=== PATIENT | male | born 1950 | race Caucasian/White ===

== ENCOUNTER → 2016-11-08 | Outpatient (REF) | payer MEDICARE ==
[~2016-11-08] MED LIST: COLC1TAB13 PO; LOSA100T PO; MELO15TA4 PO; OMEP20CA3 PO; PRAV40TA2 PO
[2016-11-10 00:06] LABS: PLASMA COBALT 1.8 ug/L (0.0-0.9)
== END ==
LOC: M LAB REF 12:15
PROVIDERS: ATTEND Family Medicine
DX: Z96.649 Presence of unspecified artificial hip joint (principal); Z79.899 Other long term (current) drug therapy

== ENCOUNTER → 2017-09-02 | Outpatient (CLI) | payer MEDICARE | LOC: M WUC 18:56 | DX: R05 Cough (principal) | CPT/HCPCS: 71046 ==

== ENCOUNTER 2017-10-09 08:02 | Day surgery (SDC) | payer MEDICARE ==
[2017-10-09] MEDS: NS 1,000 ML IV (08:00)
[2017-10-09] MEDS ORDERED: fentaNYL 100 MCG/2 ML INJECTION (J3010) As Ordered (09:17)
[2017-10-09] MEDS ORDERED: LIDOCAINE 2% INJ 100 MG/5 ML SDV (FOR ANES.) As Ordered (09:48)
[2017-10-09] MEDS ORDERED: PROPOFOL 200 MG/20 ML VIAL As Ordered ×2 (09:48)
== END 2017-10-09 10:31 | disposition home or self-care (01) ==
LOC: M OPP 08:02
DX: Z12.11 Encounter for screening for malignant neoplasm of colon (principal); K62.1 Rectal polyp; K64.0 First degree hemorrhoids; R12 Heartburn; I10 Essential (primary) hypertension; E78.5 Hyperlipidemia, unspecified; M10.9 Gout, unspecified; K21.9 Gastro-esophageal reflux disease without esophagitis; M19.90 Unspecified osteoarthritis, unspecified site; R06.83 Snoring; Z79.899 Other long term (current) drug therapy; Z80.42 Family history of malignant neoplasm of prostate; Z96.643 Presence of artificial hip joint, bilateral
CPT/HCPCS: 45380

== ENCOUNTER → 2018-03-18 | Outpatient (REF) | payer MEDICARE ==
[2018-03-19 09:39] LABS: HEPATITIS C VIRUS ABY INDEX 0.1 INDEX (<0.8)
== END ==
LOC: M LAB REF 12:13
DX: Z01.89 Encounter for other specified special examinations (principal)
CPT/HCPCS: 86803

== ENCOUNTER → 2019-07-05 | Outpatient (CLI) | payer MEDICARE ==
[~2019-07-05] MED LIST changes: +AMLO5TAB6 PO; +ATOR40TA75; -LOSA100T PO; +LOSA100T8 PO; +MELO15TA28 PO; -MELO15TA4 PO; -OMEP20CA3 PO; +OMEP20CA4 PO; +VALS160T PO
[2019-07-05 13:14] LABS: ALBUMIN 3.9 GM/DL (3.2-5.2); BLOOD UREA NITROGEN 15 MG/DL (7-18); CALCIUM LEVEL 9.1 MG/DL (8.8-10.2); CARBON DIOXIDE LEVEL 32 MEQ/L (21-32); CHLORIDE LEVEL 107 MEQ/L (98-107); CREATININE FOR GFR 0.96 MG/DL (0.70-1.30); GLOMERULAR FILTRATION RATE > 60.0 (>49); GLUCOSE, FASTING 113 MG/DL (70-100); PHOSPHORUS LEVEL 2.9 MG/DL (2.5-4.9); POTASSIUM SERUM 4.7 MEQ/L (3.5-5.1); SODIUM LEVEL 143 MEQ/L (136-145); URIC ACID 6.9 MG/DL (3.5-7.2)
== END ==
LOC: M WUC 09:26
PROVIDERS: ATTEND Physician Assistant
DX: M10.072 Idiopathic gout, left ankle and foot (principal)

== ENCOUNTER → 2019-09-09 | Outpatient (REF) | payer MEDICARE ==
[~2019-09-09] MED LIST changes: +OMEP1CAP73 PO; -OMEP20CA4 PO; -VALS160T PO; +VALS160T2 PO
== END ==
LOC: M LAB REF 12:25
PROVIDERS: ATTEND Family Medicine
DX: M10.9 Gout, unspecified (principal)

== ENCOUNTER → 2020-06-21 | Outpatient (REF) | payer MEDICARE ==
[~2020-06-21] MED LIST changes: +AMLO1TAB24 PO; -AMLO5TAB6 PO
== END ==
LOC: M LAB REF 12:16
PROVIDERS: ATTEND Family Medicine
DX: M10.9 Gout, unspecified (principal)

== ENCOUNTER → 2022-05-28 | Outpatient (REF) | payer MEDICARE ==
[~2022-05-28] MED LIST changes: +COLC0.6T47 PO; -COLC1TAB13 PO
== END ==
LOC: M LAB REF 12:29
PROVIDERS: ATTEND Family Medicine
DX: M10.9 Gout, unspecified (principal)

== ENCOUNTER → 2022-11-28 | Outpatient (REF) | payer MEDICARE | LOC: M LAB REF 16:29 | PROVIDERS: ATTEND Family Medicine | DX: M10.9 Gout, unspecified (principal) ==

== ENCOUNTER 2023-11-01 08:55 | Observation (INO) | payer MEDICARE ==
[~2023-11-01] VITALS: Ht 167.6 cm; Wt 87.6 kg
[~2023-11-01 08:55] MED LIST changes: -ALLO100T PO; -AMLO1TAB25 PO; -AMOX875T2 PO; -ATOR80TA59 PO; -AZIT500T5 PO; -DOXY100C3 PO; -DOXY100T; -EZET10TA21 PO; -MUCI600T31 PO
[2023-11-01] MEDS ORDERED: DOXY100T (09:20)
[2023-11-01] MEDS ORDERED: EZET10TA21 PO (09:20)
[2023-11-01] MEDS ORDERED: ALLO100T PO (09:20)
[2023-11-01 11:29] LABS: BASO # 0.1 10^3/uL (0.0-0.2); BASO % 0.9 % (0.0-1.0); EOS % 0.3 % (0.0-3.0); HEMATOCRIT 43.6 % (42.0-52.0); HEMOGLOBIN 14.8 g/dl (13.5-17.5); LYMPH # 2.4 10^3/uL (1.5-5.0); LYMPH % 18.3 % (24.0-44.0); MEAN CORPUSCULAR HGB CONC 33.9 g/dl (32.0-36.5); MEAN CORPUSCULAR VOLUME 88.4 fl (80.0-96.0); MONO # 1.6 10^3/uL (0.0-0.8); NEUTROPHILS # 8.3 10^3/uL (1.5-8.5); NEUTROPHILS % 62.8 % (36.0-66.0); PLATELET COUNT, AUTOMATED 243 10^3/uL (150-450); RED BLOOD COUNT 4.93 10^6/uL (4.30-6.10); WHITE BLOOD COUNT 13.2 10^3/uL (4.0-10.0)
[2023-11-01 12:04] LABS: CPK CREATINE PHOSPHOKINASE 76 U/L (46-171)
[2023-11-01 12:05] LABS: ALBUMIN 3.1 G/DL (3.2-5.2); ALKALINE PHOSPHATASE 68 U/L (46-116); ALT/SGPT 44 U/L (7.0-40); AST/SGOT 24 U/L (<34); BILIRUBIN,DIRECT 0.3 MG/DL (<0.4); BILIRUBIN,TOTAL 0.9 MG/DL (0.3-1.2); BLOOD UREA NITROGEN 12 MG/DL (9-23); CALCIUM LEVEL 9.2 MG/DL (8.3-10.6); CARBON DIOXIDE LEVEL 26 MMOL/L (20-31); CHLORIDE LEVEL 103 MMOL/L (98-107); CK-MB VALUE MASS < 1.0 NG/ML (<3.6); CREATININE FOR GFR 0.83 MG/DL (0.70-1.30); GLOMERULAR FILTRATION RATE > 60.0 (>42); GLUCOSE, FASTING 96 MG/DL (74-106); MB/CK RELATIVE INDEX 1.31 (< OR =4); POTASSIUM SERUM 3.9 MMOL/L (3.5-5.1); SODIUM LEVEL 136 MMOL/L (136-145); TOTAL PROTEIN 6.6 G/DL (5.7-8.2)
[2023-11-01] MEDS ORDERED: ISOVUE-370 76% 100ML VIAL As Ordered ONE (12:56)
[2023-11-01] MEDS: cefTRIAXone SOD 1 GM in D5W MINI-BAG PLUS 50 ML IV ONE (14:20)
[2023-11-01] MEDS: AZITHROMYCIN INJ 500 MG, VIAL MATE ADAPTER 1 EACH in NS 250 ML IV ONE (15:05)
[2023-11-01] MEDS ORDERED: ATOR80TA59 PO (15:10)
[2023-11-01] MEDS ORDERED: DOXY100C3 PO (15:10)
[2023-11-01] MEDS ORDERED: AMLO1TAB25 PO (15:10)
[2023-11-01] MEDS ORDERED: HOME MED LIST COMPLETE! XX SCH (15:15)
[2023-11-01] MEDS ORDERED: OMEPRAZOLE 20MG CAP PO PRN (15:40)
[2023-11-01] MEDS: NS 1,000 ML IV ONE (17:12)
[2023-11-01 17:31] VITALS: BP 129/79; TEMP 98.8
[2023-11-01 17:50] VITALS: O2SAT 93
[2023-11-01] MEDS: ENOXAPARIN 40MG/0.4ML SYRINGE (J1650 PER 10MG) SC SCH (20:15)
[2023-11-01 22:00] VITALS: BP 133/61; TEMP 99.3; O2SAT 93
[2023-11-02 05:20] VITALS: BP 134/61; TEMP 97.9; O2SAT 93
[2023-11-02 06:27] LABS: HEMATOCRIT 40.1 % (42.0-52.0); HEMOGLOBIN 13.5 g/dl (13.5-17.5); MEAN CORPUSCULAR HEMOGLOBIN 29.8 pg (27.0-33.0); MEAN CORPUSCULAR HGB CONC 33.7 g/dl (32.0-36.5); MEAN CORPUSCULAR VOLUME 88.5 fl (80.0-96.0); PLATELET COUNT, AUTOMATED 240 10^3/uL (150-450); RED BLOOD COUNT 4.53 10^6/uL (4.30-6.10); WHITE BLOOD COUNT 11.9 10^3/uL (4.0-10.0)
[2023-11-02 06:37] LABS: BLOOD UREA NITROGEN 10 MG/DL (9-23); CALCIUM LEVEL 8.7 MG/DL (8.3-10.6); CARBON DIOXIDE LEVEL 26 MMOL/L (20-31); CHLORIDE LEVEL 105 MMOL/L (98-107); GLOMERULAR FILTRATION RATE > 60.0 (>42); GLUCOSE, FASTING 101 MG/DL (74-106); SODIUM LEVEL 136 MMOL/L (136-145)
[2023-11-02] MEDS: allopurinoL 100 MG TAB PO SCH (08:25)
[2023-11-02] MEDS: ATORVASTATIN 20 MG TAB PO SCH (08:25)
[2023-11-02] MEDS: AZITHROMYCIN 250MG TABLET PO SCH (08:25)
[2023-11-02 08:26] VITALS: BP 134/61
[2023-11-02] MEDS: EZETIMIBE 10MG TABLET (ZETIA) PO SCH (08:26)
[2023-11-02] MEDS: VALSARTAN 80 MG TAB (DIOVAN) PO SCH (08:26)
[2023-11-02] MEDS ORDERED: AZIT500T5 PO (09:59)
[2023-11-02] MEDS ORDERED: AMOX875T2 PO (09:59)
[2023-11-02] MEDS ORDERED: MUCI600T31 PO (11:34)
[2023-11-02] MEDS ORDERED: cefTRIAXone SOD 1 GM in D5W MINI-BAG PLUS 50 ML IV SCH (14:00)
[2023-11-05 15:21] LABS: BODY FLUID CULTURE Not indicated. (.); LEGIONELLA ANTIGEN URINE Negative (Negative); ORGANISM ID Not indicated. (.); SPECIMEN SOURCE Urine (.); URINE STREP PNEUMONIAE ANTIGEN Negative (Negative)
== END 2023-11-02 11:40 | disposition home or self-care (01) ==
LOC: M ED 08:55 → M ED INP 14:31 → ENRESERV 15:07 → M MSPAV 16:37
PROVIDERS: ADMIT Internal Medicine; ATTEND Internal Medicine
DX: J18.9 Pneumonia, unspecified organism (principal); I10 Essential (primary) hypertension; E78.5 Hyperlipidemia, unspecified; M10.9 Gout, unspecified; K21.9 Gastro-esophageal reflux disease without esophagitis; Z79.2 Long term (current) use of antibiotics; Z79.899 Other long term (current) drug therapy
CPT/HCPCS: 36415; 71275; 80048; 80076; 82550; 82553; 83605; 84484; 85025; 85027; 87040; 87070; 87205; 87449; 87486; 87581; 87633; 87798; 87899; 93005; 96365; 96367; 96375; 99284; G0378; J0456; J0696; Q9967

== ENCOUNTER → 2023-11-01 | Outpatient (CLI) | payer MEDICARE ==
[~2023-11-01] MED LIST changes: +ALLO100T PO; +AMLO1TAB25 PO; +AMOX875T2 PO; +ATOR80TA59 PO; +AZIT500T5 PO; +DOXY100C3 PO; +DOXY100T; +EZET10TA21 PO; +MUCI600T31 PO
== END ==
LOC: M WUC 08:24
PROVIDERS: ATTEND Family Medicine
DX: J20.9 Acute bronchitis, unspecified (principal)

== ENCOUNTER → 2023-12-17 | Outpatient (REF) | payer MEDICARE ==
[~2023-12-17] MED LIST changes: +ALLO100T PO; +AMLO1TAB25 PO; +AMOX875T2 PO; +ATOR80TA59 PO; +AZIT500T5 PO; +DOXY100C3 PO; +DOXY100T; +EZET10TA21 PO; +MUCI600T31 PO
== END ==
LOC: M LAB REF 12:03
PROVIDERS: ATTEND Family Medicine
DX: M10.9 Gout, unspecified (principal)

== ENCOUNTER → 2024-01-30 | Outpatient (CLI) | payer MEDICARE | LOC: M PLAIMG 07:56 | PROVIDERS: ATTEND Family Medicine | DX: J18.9 Pneumonia, unspecified organism (principal) ==

== ENCOUNTER 2024-08-18 07:23 | Inpatient (IN) | payer MEDICARE ==
[~2024-08-18] VITALS: Ht 172.7 cm; Wt 89.2 kg
[2024-08-18] MEDS ORDERED: HYDR-3713 (07:34)
[2024-08-18 08:23] LABS: HEMATOCRIT 42.5 % (42.0-52.0); HEMOGLOBIN 14.7 g/dl (13.5-17.5); MEAN CORPUSCULAR HEMOGLOBIN 30.5 pg (27.0-33.0); MEAN CORPUSCULAR HGB CONC 34.6 g/dl (32.0-36.5); MEAN CORPUSCULAR VOLUME 88.2 fl (80.0-96.0); PLATELET COUNT, AUTOMATED 181 10^3/uL (150-450); RED BLOOD COUNT 4.82 10^6/uL (4.30-6.10); WHITE BLOOD COUNT 21.8 10^3/uL (4.0-10.0)
[2024-08-18 08:47] LABS: LIPASE 25 U/L (12-53)
[2024-08-18 08:50] LABS: ALBUMIN 3.4 G/DL (3.2-5.2); ALKALINE PHOSPHATASE 66 U/L (40-129); ALT/SGPT 29 U/L (7.0-40); AST/SGOT 24 U/L (<34); BILIRUBIN,DIRECT 0.6 MG/DL (<0.4); BILIRUBIN,TOTAL 1.5 MG/DL (0.3-1.2); BLOOD UREA NITROGEN 13 MG/DL (9-23); CALCIUM LEVEL 8.7 MG/DL (8.3-10.6); CARBON DIOXIDE LEVEL 26 MMOL/L (20-31); CHLORIDE LEVEL 102 MMOL/L (98-107); CREATININE FOR GFR 0.99 MG/DL (0.70-1.30); GLOMERULAR FILTRATION RATE > 60.0 (>42); GLUCOSE, FASTING 135 MG/DL (74-106); POTASSIUM SERUM 4.2 MMOL/L (3.5-5.1); SODIUM LEVEL 138 MMOL/L (136-145); TOTAL PROTEIN 6.6 G/DL (5.7-8.2)
[2024-08-18] MEDS: KETOROLAC 30 MG/ML 1ML VIAL IV ONE (09:18)
[2024-08-18] MEDS: PIPERACILLIN/TAZOBACTAM SOD 3.375 GM in DEXTROSE 5% (D5W) ADV/MINI-BAG 50 ML IV ONE (09:20)
[2024-08-18 09:33] LABS: ATYPICAL LYMPH 1 % (0-5); LYMPHOCYTES 5 % (16-44); MONOCYTES 22 % (0-5); NEUTROPHILS 71 % (28-66)
[2024-08-18 09:35] LABS: ANISOCYTOSIS 1+; PLATELET ESTIMATE NORMAL (NORMAL)
[2024-08-18] MEDS ORDERED: OMEPRAZOLE 20MG CAP PO PRN (10:45)
[2024-08-18] MEDS ORDERED: HOME MED LIST COMPLETE! XX SCH (10:45)
[2024-08-18] MEDS ORDERED: ONDANSETRON 4MG 2ML VIAL IV PRN (11:00)
[2024-08-18] MEDS: NS (Normal Saline) 0.9% 1,000 ML IV SCH (11:03)
[2024-08-18] MEDS: ENOXAPARIN 40MG/0.4ML SYRINGE (J1650 PER 10MG) SC SCH (11:05)
[2024-08-18 11:30] LABS: PROCALCITONIN 0.36 ng/ml
[2024-08-18] MEDS: PIPERACILLIN/TAZOBACTAM SOD 3.375 GM in DEXTROSE 5% (D5W) ADV/MINI-BAG 50 ML IV SCH (15:02)
[2024-08-18] MEDS: KETOROLAC 30 MG/ML 1ML VIAL IV PRN (15:35)
[2024-08-18 15:56] VITALS: BP 142/62; TEMP 99; O2SAT 93
[2024-08-19] VITALS: BP 123/66; TEMP 98.1; O2SAT 94
[2024-08-19 07:09] LABS: HEMATOCRIT 40.9 % (42.0-52.0); HEMOGLOBIN 13.7 g/dl (13.5-17.5); MEAN CORPUSCULAR HEMOGLOBIN 29.8 pg (27.0-33.0); MEAN CORPUSCULAR HGB CONC 33.5 g/dl (32.0-36.5); MEAN CORPUSCULAR VOLUME 89.1 fl (80.0-96.0); PLATELET COUNT, AUTOMATED 173 10^3/uL (150-450); RED BLOOD COUNT 4.59 10^6/uL (4.30-6.10)
[2024-08-19 07:44] LABS: ALBUMIN 2.9 G/DL (3.2-5.2); ALKALINE PHOSPHATASE 61 U/L (40-129); ALT/SGPT 27 U/L (7.0-40); AST/SGOT 21 U/L (<34); BILIRUBIN,TOTAL 1.8 MG/DL (0.3-1.2); BLOOD UREA NITROGEN 17 MG/DL (9-23); CALCIUM LEVEL 8.3 MG/DL (8.3-10.6); CARBON DIOXIDE LEVEL 28 MMOL/L (20-31); CHLORIDE LEVEL 106 MMOL/L (98-107); CREATININE FOR GFR 1.17 MG/DL (0.70-1.30); GLOMERULAR FILTRATION RATE > 60.0 (>42); GLUCOSE, FASTING 102 MG/DL (74-106); POTASSIUM SERUM 3.7 MMOL/L (3.5-5.1); SODIUM LEVEL 143 MMOL/L (136-145); TOTAL PROTEIN 5.7 G/DL (5.7-8.2)
[2024-08-19 08:28] VITALS: BP 142/63; TEMP 98.8; O2SAT 92
[2024-08-19] MEDS: allopurinoL 100 MG TAB PO SCH (08:30)
[2024-08-19] MEDS: EZETIMIBE 10MG TABLET (ZETIA) PO SCH (08:30)
[2024-08-19] MEDS: ATORVASTATIN 20 MG TAB PO SCH (08:30)
[2024-08-19 12:00] VITALS: BP 135/62; TEMP 97.5; O2SAT 92
[2024-08-19 20:40] VITALS: BP 135/62; TEMP 97; O2SAT 93
[2024-08-20 03:40] VITALS: BP 135/63; TEMP 99.1; O2SAT 94
[2024-08-20 07:55] LABS: BASO # 0.1 10^3/uL (0.0-0.2); BASO % 0.3 % (0.0-1.0); EOS % 0.2 % (0.0-3.0); HEMATOCRIT 38.8 % (42.0-52.0); HEMOGLOBIN 13.2 g/dl (13.5-17.5); LYMPH # 1.6 10^3/uL (1.5-5.0); LYMPH % 9.5 % (24.0-44.0); MEAN CORPUSCULAR HEMOGLOBIN 30.1 pg (27.0-33.0); MEAN CORPUSCULAR VOLUME 88.4 fl (80.0-96.0); MONO # 1.5 10^3/uL (0.0-0.8); MONO % 9.5 % (2.0-8.0); NEUTROPHILS % 80.1 % (36.0-66.0); PLATELET COUNT, AUTOMATED 173 10^3/uL (150-450); RED BLOOD COUNT 4.39 10^6/uL (4.30-6.10); WHITE BLOOD COUNT 16.3 10^3/uL (4.0-10.0)
[2024-08-20 08:09] LABS: ALBUMIN 2.7 G/DL (3.2-5.2); ALKALINE PHOSPHATASE 67 U/L (40-129); ALT/SGPT 36 U/L (7.0-40); AST/SGOT 33 U/L (<34); BILIRUBIN,TOTAL 1.6 MG/DL (0.3-1.2); BLOOD UREA NITROGEN 13 MG/DL (9-23); CARBON DIOXIDE LEVEL 24 MMOL/L (20-31); CHLORIDE LEVEL 108 MMOL/L (98-107); CREATININE FOR GFR 0.94 MG/DL (0.70-1.30); GLOMERULAR FILTRATION RATE > 60.0 (>42); GLUCOSE, FASTING 99 MG/DL (74-106); POTASSIUM SERUM 3.7 MMOL/L (3.5-5.1); SODIUM LEVEL 142 MMOL/L (136-145); TOTAL PROTEIN 5.7 G/DL (5.7-8.2)
[2024-08-20 12:00] VITALS: BP 129/64; TEMP 99; O2SAT 94
[2024-08-21 04:55] VITALS: BP 148/71; TEMP 98.6; O2SAT 94
[2024-08-21 06:47] LABS: HEMATOCRIT 37.4 % (42.0-52.0); HEMOGLOBIN 12.7 g/dl (13.5-17.5); MEAN CORPUSCULAR HEMOGLOBIN 30.2 pg (27.0-33.0); PLATELET COUNT, AUTOMATED 178 10^3/uL (150-450); WHITE BLOOD COUNT 13.4 10^3/uL (4.0-10.0)
[2024-08-21 07:04] LABS: BLOOD UREA NITROGEN 9 MG/DL (9-23); CALCIUM LEVEL 7.7 MG/DL (8.3-10.6); CARBON DIOXIDE LEVEL 24 MMOL/L (20-31); CHLORIDE LEVEL 109 MMOL/L (98-107); CREATININE FOR GFR 0.86 MG/DL (0.70-1.30); GLOMERULAR FILTRATION RATE > 60.0 (>42); GLUCOSE, FASTING 102 MG/DL (74-106); POTASSIUM SERUM 3.6 MMOL/L (3.5-5.1); SODIUM LEVEL 143 MMOL/L (136-145)
[2024-08-21 09:24] VITALS: BP 144/70
[2024-08-21] MEDS ORDERED: LEVO1TAB40 PO (11:22)
[2024-08-21] MEDS ORDERED: METR375C3 PO (11:22)
[2024-08-21] MEDS: FLUBLOK(EGGFREE) TRIVAL(24-25) VACCINE PF 0.5ML SYRINGE 18YRS & OLDER IM.IMMUN ONE (11:44)
[2024-08-21 12:05] VITALS: BP 142/70; TEMP 98.1; O2SAT 95
[2024-08-21] MEDS ORDERED: METR-265 PO (12:10)
== END 2024-08-21 14:04 | disposition home or self-care (01) | DRG 446 ==
LOC: M ED 07:23 → M ED INP 10:40 → M MSPAV 16:15
PROVIDERS: ADMIT Internal Medicine; ATTEND Internal Medicine
DX: K80.00 Calculus of gallbladder with acute cholecystitis without obstruction (principal); I10 Essential (primary) hypertension; K21.9 Gastro-esophageal reflux disease without esophagitis; E78.5 Hyperlipidemia, unspecified; M19.90 Unspecified osteoarthritis, unspecified site; M10.9 Gout, unspecified; Z96.643 Presence of artificial hip joint, bilateral; Z79.899 Other long term (current) drug therapy

== ENCOUNTER 2024-10-06 09:31 | Day surgery (SDC) | payer MEDICARE ==
[~2024-10-06] VITALS: Ht 170.2 cm; Wt 82.6 kg
[~2024-10-06 09:31] MED LIST changes: +ACETAMINOPHEN 1000MG/100ML IV BAG As Ordered ONE; +BAYE81TA10 PO; +GLYCOPYRROLATE INJ 0.2 MG/ML 2 ML VIAL As Ordered ONE; +HYDR-3713; +LEVO1TAB40 PO; +LIDOCAINE 2% 100MG/5ML SDV (FOR ANES.) As Ordered ONE; +METR-265 PO; +METR375C3 PO; +MIDAZOLAM INJ 2MG/2ML VIAL As Ordered ONE; +ONDANSETRON 4MG 2ML VIAL As Ordered ONE; +ROCURONIUM BROMIDE 50MG/5ML VIAL As Ordered ONE; +SUGAMMADEX SODIUM 500 MG/5 ML VIAL (BRIDION) As Ordered ONE; +fentaNYL 100 MCG/2 ML INJECTION As Ordered ONE; +propofoL 200 MG/20 ML VIAL As Ordered ONE
[2024-10-06] MEDS ORDERED: LR 1,000 ML IV SCH (10:20)
[2024-10-06] MEDS: ceFAZolin SOD 2 GM in IV 1 EA IV ONE (12:15)
[2024-10-06] MEDS ORDERED: ePHEDrine SULFATE 25 MG/5 ML(5MG/ML) SYRINGE As Ordered ONE (12:40)
[2024-10-06] MEDS ORDERED: ESMOLOL INJ 100MG/10ML VIAL As Ordered ONE (12:49)
[2024-10-06] MEDS: LR 1,000 ML IV SCH (13:45)
[2024-10-06] MEDS ORDERED: ONDANSETRON 4MG 2ML VIAL IV PRN (13:45)
[2024-10-06] MEDS ORDERED: fentaNYL 100 MCG/2 ML INJECTION IV PRN (13:45)
[2024-10-06] MEDS ORDERED: HYDROMORPHONE HCL 0.5 MG/ 0.5 ML SYRINGE IV PRN (13:45)
[2024-10-06] MEDS: oxyCODONE 5MG TAB PO PRN (14:05)
[2024-10-06] MEDS: KETOROLAC 30 MG/ML 1ML VIAL IV SCH (14:13)
[2024-10-06] MEDS ORDERED: NS (Normal Saline) 0.9% 1,000 ML IV SCH (14:15)
[2024-10-06 17:05] VITALS: BP 170/84; TEMP 96.8; O2SAT 98
== END 2024-10-06 17:08 | disposition home or self-care (01) ==
LOC: M SDC 09:31
PROVIDERS: ATTEND Surgery
DX: K80.20 Calculus of gallbladder without cholecystitis without obstruction (principal); I10 Essential (primary) hypertension; E78.5 Hyperlipidemia, unspecified; K21.9 Gastro-esophageal reflux disease without esophagitis; Z79.899 Other long term (current) drug therapy; Z79.82 Long term (current) use of aspirin; M10.9 Gout, unspecified
CPT/HCPCS: 47562; 88304; J0131; J0665; J0690; J1100; J1596; J1805; J1885; J2250; J2405; J3010